=== PATIENT | female | born 1995 | race American Indian/Alaskan Native ===

== ENCOUNTER → 2018-04-15 | Outpatient (CLI) | payer OTHER ==
[2018-04-15 14:56] LABS: PLATELET COUNT, AUTOMATED 345 K/uL (150-450)
== END ==
LOC: LAB 14:38
PROVIDERS: ATTEND Nurse Practitioner Family
DX: R53.83 Other fatigue (principal)
CPT/HCPCS: 36415; 82040; 82247; 82310; 82374; 82435; 82565; 82947; 84075; 84132; 84155; 84295; 84443; 84450; 84460; 84520; 85025